=== PATIENT | male | born 1965 | race Caucasian/White ===

== ENCOUNTER 2021-03-13 05:30 | Inpatient (IN) | payer BC ==
[2021-03-06 15:36] LABS: BASOPHILS # (AUTO) 0.1 X10'3 (0-0.2); BASOPHILS % (AUTO) 1.4 % (0-1); EOSINOPHILS # (AUTO) 0.1 X10'3 (0-0.9); EOSINOPHILS % (AUTO) 1.3 % (0-6); LYMPHOCYTES # (AUTO) 2.5 X10'3 (1.1-4.8); MEAN CORPUSCULAR HEMOGLOBIN 36.3 PG (27.0-31.0); MEAN CORPUSCULAR HGB CONC 34.3 g/dL (33.0-36.5); MEAN CORPUSCULAR VOLUME 105.6 FL (78-98); MEAN PLATELET VOLUME 7.3 FL (7.4-10.4); MONOCYTES # (AUTO) 0.7 X10'3 (0-0.9); MONOCYTES % (AUTO) 9.1 % (2-12); NEUTROPHILS # (AUTO) 4.8 X10'3 (1.8-7.7); NEUTROPHILS % (AUTO) 58.2 % (42-75); PRE OP HEMATOCRIT 36.6 % (42.0-52.0); PRE OP HEMOGLOBIN 12.6 g/dL (14.0-17.9); PRE OP PLATELET COUNT 234 X10'3 (140-440); RED BLOOD COUNT 3.47 X10'6 (4.70-6.10); RED CELL DISTRIBUTION WIDTH 16.4 % (11.5-14.5)
[2021-03-06 15:50] LABS: PRE OP PROTIME 9.9 SECONDS (9.0-12.0)
[2021-03-06 15:52] LABS: ALBUMIN 3.7 G/DL (3.4-5.0); ALBUMIN/GLOBULIN RATIO 1.1 (1.1-1.5); ALKALINE PHOSPHATASE 97 IU/L (46-116); BLOOD UREA NITROGEN 24 MG/DL (7-18); BUN/CREATININE RATIO 14.5 (5.4-32.0); CALCIUM 9.2 MG/DL (8.5-10.1); CHLORIDE 108 MMOL/L (99-107); CREATININE 1.65 MG/DL (0.60-1.10); PRE OP ALT 62 U/L (30-65); PRE OP ANION GAP 11 (8-16); PRE OP AST 25 U/L (10-37); PRE OP BILIRUB, TOTAL 0.2 MG/DL (0.0-1.0); PRE OP GLUCOSE 146 MG/DL (70-104); PRE OP POTASSIUM 4.1 MMOL/L (3.4-5.1); PRE OP SODIUM 144 MMOL/L (135-145); TOTAL CARBON DIOXIDE 24.6 MMOL/L (24-32); eGFR 43 ML/MIN
[2021-03-13] VITALS (23 sets, daily range): BP systolic 126–156; BP diastolic 79–95
[~2021-03-13] VITALS: Ht 177.8 cm; Wt 86.2 kg
[~2021-03-13 05:30] MED LIST: GABA-530 PO; MALTODEXTRIN/FRUCTOSE 0.68 KCAL/ML LIQUID 296ML BOTTLE PO ONE; PANT40TA54 PO; ceFOXitin 2GM-NS 100mL ADDvant 100 ML IV ONE; famotidine 20mg tablet PO ONE; heparin, porcine 5000 units/ml vial SQ SCH; metroNIDAZOLE-Flagyl 500mg/NS 100ML IVPB IV ONE; ringers solution, lacted 1,000 ML IV SCH
[2021-03-13] MEDS ORDERED: LIDOcaine 1% (10mg/ml) 2ml vial ONE (06:00)
[2021-03-13] MEDS ORDERED: hydrALAZINE 20mg/ml inj. IV PRN (06:40)
[2021-03-13] MEDS ORDERED: fentaNYL/PF 50MCG/1 ML 2ML syringe IV PRN ×2 (06:40)
[2021-03-13] MEDS ORDERED: ringers solution, lacted 1,000 ML IV SCH (06:40)
[2021-03-13] MEDS ORDERED: morphine 4 MG/ML inj SYRINge IV PRN (06:40)
[2021-03-13] MEDS ORDERED: labetalol 20mg/4ml (5mg/ml) syringe IV PRN (06:40)
[2021-03-13] MEDS ORDERED: ondansetron/PF 4mg/2ml inj IV PRN ×2 (06:40→09:30)
[2021-03-13] MEDS ORDERED: morphine 2 MG/ML inj. syringe IV PRN (06:40)
[2021-03-13] MEDS ORDERED: BUPIVAcaine/PF 2.5 mg/ml (0.25%) 30ml vial ONE (06:58)
[2021-03-13] MEDS ORDERED: LIDOCAINE 1%/EPI 1:100,000 inj. 10 ML multi-dose vial ONE (06:58)
[2021-03-13] MEDS ORDERED: fentaNYL /PF 50mcg/ml 5ml ampule ONE (07:13)
[2021-03-13] MEDS ORDERED: midazolam 1 mg/ML 2ml injection ONE (07:13)
[2021-03-13] MEDS ORDERED: glycopyrrolate 0.2mg/ml inj ONE (07:16)
[2021-03-13] MEDS ORDERED: LIDOcaine 2% (20mg/ml) 5ml vial ONE (07:16)
[2021-03-13] MEDS ORDERED: neostigmine methylsulfate 1 MG/ML 10ml vial ONE ×2 (07:16→07:54)
[2021-03-13] MEDS ORDERED: propofol inj 20 ML IV ONE (07:16)
[2021-03-13] MEDS ORDERED: rocuronium 10mg/ml inj IV ONE ×2 (07:17→08:33)
[2021-03-13] MEDS ORDERED: ondansetron/PF 4mg/2ml inj ONE (07:17)
[2021-03-13] MEDS ORDERED: dexamethasone sod phosphate 4mg/ml inj. ONE (07:43)
[2021-03-13] MEDS ORDERED: sevoflurane 250ml liquid IH ONE (07:54)
[2021-03-13] MEDS ORDERED: CADD PCA waste documentation MC PRN (09:30)
[2021-03-13] MEDS ORDERED: naloxone 0.4 mg/ml inj IV PRN (09:30)
[2021-03-13] MEDS ORDERED: HYDROcodone/acetaminophen 5mg/325mg tablet PO PRN (09:30)
--- NOTE | 2021-03-13 09:30 | NUR ---
Received from OR via BED, accompanied by Anesthesiologist DR GUZMAN and report given by Anesthesiologist. PT DROWSY W/ORAL AIRWAY, NO S/S OF DISTRESS/DISCOMFORT. ABDOMEN LEFT SIDE W/[facility], RIGHT SIDE W/UROSTOMY PINK STOMA W/YELLOW URINE IN DRAINAGE BAG TO GRAVITY DRAINAGE, [facility]. Addendum: 03/13/21 at 0950 by Tiarra Monet RN Amended: Links added.
[2021-03-13] MEDS: HYDROmorph./NS 0.2 mg/ml CADD 100 ML IV SCH ×7 (10:18→23:00)
[2021-03-13] MEDS: potassium CL 20mEq in D5-1/2NS 1,000 ML IV SCH ×2 (13:16→22:26)
[2021-03-13] MEDS: ceFOXitin inj 1,000 MG in dextrose 5%-water 100 ML IV SCH (17:18)
--- NOTE | 2021-03-13 18:19 | NUR ---
Problems reprioritized. Patient report given, questions answered & plan of care reviewed with ALFONSO Hudr.
[2021-03-13] MEDS: docusate sod 100mg capsule PO SCH ×2 (19:47→19:51)
[2021-03-13] MEDS: heparin, porcine 5000 units/ml vial SQ SCH (19:50)
[2021-03-14] VITALS: BP 117/68
[2021-03-14] MEDS: ceFOXitin inj 1,000 MG in dextrose 5%-water 100 ML IV SCH (00:40)
[2021-03-14] MEDS: HYDROmorph./NS 0.2 mg/ml CADD 100 ML IV SCH ×12 (01:00→23:00)
[2021-03-14 06:00] VITALS: BP 138/74
--- NOTE | 2021-03-14 06:07 | NUR ---
Problems reprioritized. Patient report given, questions answered & plan of care reviewed with CLEMENTINA.
--- NOTE | 2021-03-14 06:08 | NUR ---
Problems reprioritized. Patient report given, questions answered & plan of care reviewed with CLEMENTINA. Addendum: 03/14/21 at 0608 by Jerad Steele RN Amended: Links added.
[2021-03-14 06:18] LABS: ANION GAP 11 (8-16); BLOOD UREA NITROGEN 18 MG/DL (7-18); BUN/CREATININE RATIO 12.7 (5.4-32.0); CALCIUM 7.9 MG/DL (8.5-10.1); CHLORIDE 107 MMOL/L (99-107); CREATININE 1.42 MG/DL (0.60-1.10); GLUCOSE 130 MG/DL (70-104); POTASSIUM 4.1 MMOL/L (3.5-5.1); SODIUM 138 MMOL/L (135-145); eGFR 51 ML/MIN
[2021-03-14 06:19] LABS: BASOPHILS % (AUTO) 0.2 % (0-1); EOSINOPHILS % (AUTO) 0.1 % (0-6); HEMATOCRIT 31.4 % (42.0-52.0); LYMPHOCYTES # (AUTO) 1.8 X10'3 (1.1-4.8); LYMPHOCYTES % (AUTO) 20.8 % (21-51); MEAN CORPUSCULAR HEMOGLOBIN 37.3 PG (27.0-31.0); MEAN CORPUSCULAR HGB CONC 35.1 g/dL (33.0-36.5); MEAN CORPUSCULAR VOLUME 106.2 FL (78-98); MEAN PLATELET VOLUME 7.6 FL (7.4-10.4); MONOCYTES # (AUTO) 0.9 X10'3 (0-0.9); MONOCYTES % (AUTO) 10.6 % (2-12); NEUTROPHILS % (AUTO) 68.3 % (42-75); PLATELET COUNT 175 X10'3 (140-440); RED BLOOD COUNT 2.95 X10'6 (4.70-6.10); RED CELL DISTRIBUTION WIDTH 16.2 % (11.5-14.5); WHITE BLOOD COUNT 8.7 X10'3 (4.5-11.0)
--- NOTE | 2021-03-14 06:43 | NUR ---
Patient in room [facility]. I have received report from ALFONSO Hurd and had the opportunity to ask questions and assume patient care.
[2021-03-14] MEDS: heparin, porcine 5000 units/ml vial SQ SCH ×2 (09:09→21:34)
[2021-03-14 12:15] VITALS: BP 136/82
[2021-03-14] MEDS: potassium CL 20mEq in D5-1/2NS 1,000 ML IV SCH ×2 (14:25→15:34)
--- NOTE | 2021-03-14 18:17 | NUR ---
Problems reprioritized. Patient report given, questions answered & plan of care reviewed with ALFONSO Hurd.
[2021-03-14] MEDS: docusate sod 100mg capsule PO SCH (21:16)
[2021-03-14 22:33] VITALS: BP 185/99
[2021-03-15] VITALS: BP 158/89
[2021-03-15] MEDS: HYDROmorph./NS 0.2 mg/ml CADD 100 ML IV SCH ×3 (01:00→05:00)
--- NOTE | 2021-03-15 06:22 | NUR ---
Problems reprioritized. Patient report given, questions answered & plan of care reviewed with CLEMENTINA HAMILTON.
[2021-03-15 06:25] LABS: ANION GAP 13 (8-16); BLOOD UREA NITROGEN 15 MG/DL (7-18); BUN/CREATININE RATIO 11.5 (5.4-32.0); CALCIUM 7.8 MG/DL (8.5-10.1); CHLORIDE 108 MMOL/L (99-107); CREATININE 1.31 MG/DL (0.60-1.10); GLUCOSE 142 MG/DL (70-104); POTASSIUM 3.5 MMOL/L (3.5-5.1); SODIUM 141 MMOL/L (135-145); TOTAL CARBON DIOXIDE 20.5 MMOL/L (24-32); eGFR 56 ML/MIN
[2021-03-15 06:30] LABS: BASOPHILS % (AUTO) 0.2 % (0-1); EOSINOPHILS % (AUTO) 0.1 % (0-6); HEMATOCRIT 33.9 % (42.0-52.0); LYMPHOCYTES # (AUTO) 1.1 X10'3 (1.1-4.8); LYMPHOCYTES % (AUTO) 10.2 % (21-51); MEAN CORPUSCULAR HEMOGLOBIN 37.1 PG (27.0-31.0); MEAN CORPUSCULAR HGB CONC 35.4 g/dL (33.0-36.5); MEAN CORPUSCULAR VOLUME 104.7 FL (78-98); MEAN PLATELET VOLUME 7.8 FL (7.4-10.4); MONOCYTES # (AUTO) 0.8 X10'3 (0-0.9); MONOCYTES % (AUTO) 7.8 % (2-12); NEUTROPHILS # (AUTO) 8.6 X10'3 (1.8-7.7); NEUTROPHILS % (AUTO) 81.7 % (42-75); PLATELET COUNT 203 X10'3 (140-440); RED BLOOD COUNT 3.24 X10'6 (4.70-6.10); RED CELL DISTRIBUTION WIDTH 16.5 % (11.5-14.5); WHITE BLOOD COUNT 10.5 X10'3 (4.5-11.0)
--- NOTE | 2021-03-15 06:30 | NUR ---
Patient in room [facility]. I have received report from ALFONSO Hurd and had the opportunity to ask questions and assume patient care.
[2021-03-15 07:00] VITALS: BP 147/89
[2021-03-15] MEDS: heparin, porcine 5000 units/ml vial SQ SCH ×2 (08:55→21:20)
[2021-03-15 11:00] VITALS: BP 142/90
--- NOTE | 2021-03-15 18:18 | NUR ---
Problems reprioritized. Patient report given, questions answered & plan of care reviewed with ASHLEE Summers.
[2021-03-15 20:00] VITALS: BP 153/90
[2021-03-16] VITALS: BP 144/83
[2021-03-16] MEDS: potassium CL 20mEq in D5-1/2NS 1,000 ML IV SCH (06:25)
[2021-03-16 06:34] LABS: BASOPHILS % (AUTO) 0.3 % (0-1); EOSINOPHILS # (AUTO) 0.1 X10'3 (0-0.9); EOSINOPHILS % (AUTO) 0.9 % (0-6); HEMATOCRIT 32.4 % (42.0-52.0); HEMOGLOBIN 11.3 g/dl (14.0-17.9); LYMPHOCYTES # (AUTO) 1.6 X10'3 (1.1-4.8); LYMPHOCYTES % (AUTO) 23.8 % (21-51); MEAN CORPUSCULAR HEMOGLOBIN 37.2 PG (27.0-31.0); MEAN CORPUSCULAR VOLUME 106.2 FL (78-98); MEAN PLATELET VOLUME 7.6 FL (7.4-10.4); MONOCYTES # (AUTO) 0.6 X10'3 (0-0.9); MONOCYTES % (AUTO) 9.1 % (2-12); NEUTROPHILS # (AUTO) 4.4 X10'3 (1.8-7.7); NEUTROPHILS % (AUTO) 65.9 % (42-75); PLATELET COUNT 190 X10'3 (140-440); RED BLOOD COUNT 3.05 X10'6 (4.70-6.10); RED CELL DISTRIBUTION WIDTH 16.7 % (11.5-14.5); WHITE BLOOD COUNT 6.6 X10'3 (4.5-11.0)
[2021-03-16 06:43] LABS: ALBUMIN 2.8 G/DL (3.4-5.0); ANION GAP 11 (8-16); BLOOD UREA NITROGEN 13 MG/DL (7-18); BUN/CREATININE RATIO 10.6 (5.4-32.0); CALCIUM 7.9 MG/DL (8.5-10.1); CHLORIDE 109 MMOL/L (99-107); CREATININE 1.23 MG/DL (0.60-1.10); GLUCOSE 108 MG/DL (70-104); POTASSIUM 3.3 MMOL/L (3.5-5.1); SODIUM 139 MMOL/L (135-145); TOTAL CARBON DIOXIDE 19.3 MMOL/L (24-32); eGFR 61 ML/MIN
[2021-03-16 07:00] VITALS: BP 141/86
--- NOTE | 2021-03-16 07:12 | NUR ---
Patient in room [facility]. I have received report from ALFONSO Summers and had the opportunity to ask questions and assume patient care.
[2021-03-16] MEDS: heparin, porcine 5000 units/ml vial SQ SCH (07:44)
--- NOTE | 2021-03-16 08:25 | NUR ---
PAGER ID: [phone] MESSAGE: [id number]- Zakiya Arzola 3.3 ok to replace per protocol? thank you- [email or web address] [phone]
--- NOTE | 2021-03-16 08:26 | NUR ---
Dr. Hahn in to see patient.
[2021-03-16] MEDS ORDERED: magnesium Cl slow-release 64mg tablet PO PRN (08:55)
[2021-03-16] MEDS ORDERED: potassium Cl 40MEQ/1/2NS 520ml 520 ML IV PRN (08:55)
[2021-03-16] MEDS ORDERED: potassium Cl 20 mEq SR tablet PO PRN ×2 (08:55)
[2021-03-16] MEDS ORDERED: magnesium 4gm in 100ml NS 100 ML IV PRN (08:55)
[2021-03-16 12:35] VITALS: BP 145/91
--- NOTE | 2021-03-16 13:08 | NUR ---
PAGER ID: [phone] MESSAGE: [id number]- Parvez Cote- joes gissell [place] and will be here soon he is wanting to dc. he is getting dressed. Thank you- Jhon [phone]
[2021-03-16] MEDS ORDERED: ACET-1008 PO (13:20)
--- NOTE | 2021-03-16 13:22 | NUR ---
Patient states son who will be providing patient ride home is from [place] and will be here approx 1500.
--- NOTE | 2021-03-16 15:30 | NUR ---
Discharge teaching given to patient by charge attendant Linda. Patient dc'd with all personal belongings. IV was dc'd.
[2021-03-16] MEDS ORDERED: K and/or MAG REPLACEMENT MC SCH (20:00)
== END 2021-03-16 15:33 | disposition home or self-care (01) | DRG 330 ==
LOC: PAS IN 05:30 → SUR 3N 11:35
PROVIDERS: ADMIT Colon & Rectal Surgery; ATTEND Colon & Rectal Surgery
PROC: 0DBB0ZZ Excision of Ileum, Open Approach (ICD-10-PCS; principal; 2021-03-13 07:28)
DX: Z43.2 Encounter for attention to ileostomy (principal); N17.9 Acute kidney failure, unspecified; G62.9 Polyneuropathy, unspecified; R15.9 Full incontinence of feces; I12.9 Hypertensive chronic kidney disease with stage 1 through stage 4 chronic kidney disease, or unspecified chronic kidney disease; N18.30 Chronic kidney disease, stage 3 unspecified; Z85.51 Personal history of malignant neoplasm of bladder; Z87.891 Personal history of nicotine dependence; Z85.79 Personal history of other malignant neoplasms of lymphoid, hematopoietic and related tissues
CPT/HCPCS: Z7506; Z7508; 36415; 71046; 80048; 80053; 82948; 85025; 85610; 85730; 86870; 86885; 86900; 86901; 86902; 86905; 86922; 87081; 93005; 97116; 97161; 97530; A4618; A6449; A7000; G0378; J0694; J1100; J1170; J1644; J2250; J2270; J2405; J2704; J2710; J3010; J3480; J3490; J7060; J7120